=== PATIENT | male | born 1960 | race Caucasian/White ===

== ENCOUNTER 2022-05-26 22:33 | Emergency (ER) | payer OTHER, BC | END 2022-05-26 23:25 | disposition home or self-care (01) | LOC: CSHERS 22:33 | DX: S30.810A Abrasion of lower back and pelvis, initial encounter (principal); S80.812A Abrasion, left lower leg, initial encounter; V29.608A Unspecified rider of other motorcycle injured in collision with unspecified motor vehicles in traffic accident, initial encounter | CPT/HCPCS: 99283 ==